=== PATIENT | female | born 1990 ===

== ENCOUNTER 2017-07-31 13:27 | Emergency (ER) | payer SELFPAY ==
[~2017-07-31] VITALS: Ht 162.6 cm; Wt 74.8 kg
[~2017-07-31 13:27] MED LIST: AMOX500; CRUTCH4 USE; FAMO20 PO; IBUP800 PO; ISOT10; NAPR500 PO; SUCR1SU PO; [UNRECOGNIZED DRUG - OTHER]; [UNRECOGNIZED DRUG - REMARK]
[2017-07-31 14:17] LABS: BASOPHILS ABSOLUTE AUTO 0.02 K/mm3 (0.00-0.23); BASOPHILS PERCENT AUTO 0 % (0-2); EOSINOPHILS PERCENT AUTO 1 % (0-6); Hemoglobin 13.3 g/dL (11.5-16.0); IMMATURE GRAN ABSOLUTE AUTO 0.01 K/mm3 (0.00-0.10); IMMATURE GRAN PERCENT AUTO 0 % (0-1); LYMPHOCYTES ABSOLUTE AUTO 2.52 K/mm3 (0.84-5.20); LYMPHOCYTES PERCENT AUTO 36 % (21-46); MONOCYTES ABSOLUTE AUTO 0.39 K/mm3 (0.16-1.47); MONOCYTES PERCENT AUTO 6 % (4-13); Mean Corpuscular HGB 31.9 pg (26.0-34.0); Mean Corpuscular HGB Conc 34.1 g/dL (31.5-36.5); Mean Corpuscular Volume 94 fL (80-100); Mean Platelet Volume 10.7 fL (9.1-12.4); NEUTROPHILS ABSOLUTE AUTO 4.03 K/mm3 (1.96-9.15); NEUTROPHILS PERCENT AUTO 57 % (41-73); Platelet Count 235 K/mm3 (150-400); RDW Coefficient Variation 12.3 % (11.7-14.2); RDW Standard Deviation 41.2 fL (35.1-46.3); Red Blood Cell Count 4.17 M/mm3 (3.80-5.20); White Blood Cell Count 7.07 K/mm3 (4.00-11.30)
[2017-07-31 14:35] LABS: Alanine Aminotransfer (ALT/SGP 25 U/L (12-78); Albumin, Blood 3.8 g/dL (3.4-5.0); Albumin/Globulin Ratio 1.1 (0.8-1.8); Alk Phos 77 U/L (50-136); Anion Gap 6 mmol/L (6-16); Aspartate Aminotrans (AST/SGOT 21 U/L (12-37); Bilirubin, Total 0.3 mg/dL (0.1-1.0); Blood Urea Nitrogen 21 mg/dL (8-24); Bun/Creatinine Ratio 27.3 (12.0-20.0); CO2, Blood 26 mmol/L (21-32); Calcium, Blood 8.4 mg/dL (8.5-10.1); Chloride, Blood 107 mmol/L (98-108); Creatinine, Blood 0.77 mg/dL (0.40-1.00); Globulin, Blood 3.5 g/dL (2.2-4.0); Glomerular Filtration Rate >60 (60-); Glucose, Blood 95 mg/dL (70-99); Sodium, Blood 139 mmol/L (136-145); Total Protein, Blood 7.3 g/dL (6.4-8.2)
[2017-07-31 18:57] LABS: Specimen Source URINE
[2017-07-31] MEDS ORDERED: Vibramycin100 MG PO (20:31)
[2017-07-31] MEDS ORDERED: IBUP600 PO (20:31)
[2017-08-01 15:06] LABS: Source Urine
== END 2017-07-31 21:05 | disposition home or self-care (01) ==
LOC: ER 13:27
PROVIDERS: Emergency Medicine; Physician Assistant
DX: R10.2 Pelvic and perineal pain (principal)
CPT/HCPCS: 36415; 76830; 76856; 80053; 81025; 83690; 84702; 85025; 87491; 87591; 96374; 99284; J0696

== ENCOUNTER → 2018-08-21 | Outpatient (CLI) | payer BC, OTHER ==
[~2018-08-21] MED LIST changes: +IBUP600 PO; +Vibramycin100 MG PO
[2018-08-22 14:09] LABS: HPV 16 Negative (Negative); HPV 18 Negative (Negative); HPV OTHER HR TYPES Positive (Negative)
== END | disposition home or self-care (01) ==
LOC: LAB SHORT 12:14 → LAB 12:14
PROVIDERS: Nurse Practitioner Women's Health
DX: Z12.4 Encounter for screening for malignant neoplasm of cervix (principal); Z91.89 Other specified personal risk factors, not elsewhere classified
CPT/HCPCS: 87624; 87625; G0123

== ENCOUNTER 2018-10-25 00:56 | Day surgery (SDC) | payer BC, OTHER ==
[2018-10-25] MEDS ORDERED: Verotin-Gr Cap1 EACH PO (15:18)
[2018-10-27] MEDS ORDERED: ONDA4ODT MM (08:44)
== END 2018-10-25 16:20 | disposition home or self-care (01) ==
LOC: ATC 00:56
DX: O21.9 Vomiting of pregnancy, unspecified (principal); Z3A.09 9 weeks gestation of pregnancy
CPT/HCPCS: 96365; 96375; J2405; J3475; J7042

== ENCOUNTER 2018-10-29 00:12 | Day surgery (SDC) | payer BC, OTHER ==
[~2018-10-29 00:12] MED LIST changes: +ONDA4ODT MM; +Verotin-Gr Cap1 EACH PO
== END 2018-10-29 16:16 | disposition home or self-care (01) ==
LOC: ATC 00:12
DX: O21.9 Vomiting of pregnancy, unspecified (principal)
CPT/HCPCS: J2405; J3411; J3475; J7042

== ENCOUNTER 2018-10-31 00:10 | Day surgery (SDC) | payer BC, OTHER | END 2018-10-31 11:35 | disposition home or self-care (01) | LOC: ATC 00:10 | DX: O21.2 Late vomiting of pregnancy (principal); Z3A.22 22 weeks gestation of pregnancy | CPT/HCPCS: 96361; 96374; J2405; J3475; J7042; J7120 ==

== ENCOUNTER 2018-11-07 00:29 | Day surgery (SDC) | payer BC, OTHER | END 2018-11-07 11:38 | disposition home or self-care (01) | LOC: ATC 00:29 | DX: O21.2 Late vomiting of pregnancy (principal); Z3A.22 22 weeks gestation of pregnancy | CPT/HCPCS: 96361; 96374; J2405; J7120 ==

== ENCOUNTER 2018-11-14 00:10 | Day surgery (SDC) | payer BC, OTHER ==
[~2018-11-14 00:10] MED LIST changes: +LABE100 PO
== END 2018-11-14 11:00 | disposition home or self-care (01) ==
LOC: ATC 00:10
DX: O21.9 Vomiting of pregnancy, unspecified (principal)
CPT/HCPCS: 96361; 96372; J2405; J3240; J7120

== ENCOUNTER → 2019-03-13 | Outpatient (CLI) | payer BC, OTHER ==
[~2019-03-13] MED LIST changes: +ACET325 PO; +IRON150C PO
== END | disposition home or self-care (01) ==
LOC: LAB SHORT 17:38 → LAB 17:38
DX: R30.0 Dysuria (principal)
CPT/HCPCS: 87086

== ENCOUNTER → 2019-03-28 | Outpatient (CLI) | payer OTHER, BC | LOC: LAB SHORT 15:59 → LAB 15:59 | DX: Z34.83 Encounter for supervision of other normal pregnancy, third trimester (principal); Z3A.32 32 weeks gestation of pregnancy | CPT/HCPCS: 82043; 87086 ==

== ENCOUNTER → 2019-04-11 | Outpatient (CLI) | payer BC, OTHER ==
[2019-04-12 22:06] LABS: CHLAMYDIA TRACHOMATIS, NAA Negative (Negative); NEISSERIA GONORRHOEAE, NAA Negative (Negative)
== END ==
LOC: LAB 12:38 → LAB SHORT 12:38
PROVIDERS: Obstetrics & Gynecology
DX: Z34.83 Encounter for supervision of other normal pregnancy, third trimester (principal); Z3A.36 36 weeks gestation of pregnancy
CPT/HCPCS: 87491; 87591

== ENCOUNTER 2019-04-25 06:05 | Inpatient (IN) | payer OTHER ==
[~2019-04-25] VITALS: Ht 162.6 cm; Wt 101.6 kg
[~2019-04-25 06:05] MED LIST changes: -ACET325 PO; -IRON150C PO
[2019-04-25 07:05] LABS: BASOPHILS ABSOLUTE AUTO 0.03 K/mm3 (0.00-0.23); BASOPHILS PERCENT AUTO 0 % (0-2); EOSINOPHILS ABSOLUTE AUTO 0.06 K/mm3 (0.00-0.68); EOSINOPHILS PERCENT AUTO 1 % (0-6); Hematocrit 36.7 % (33.0-51.0); Hemoglobin 12.5 g/dL (11.5-16.0); IMMATURE GRAN ABSOLUTE AUTO 0.04 K/mm3 (0.00-0.10); IMMATURE GRAN PERCENT AUTO 1 % (0-1); LYMPHOCYTES ABSOLUTE AUTO 1.73 K/mm3 (0.84-5.20); LYMPHOCYTES PERCENT AUTO 22 % (21-46); MONOCYTES ABSOLUTE AUTO 0.36 K/mm3 (0.16-1.47); MONOCYTES PERCENT AUTO 5 % (4-13); Mean Corpuscular HGB 31.5 pg (26.0-34.0); Mean Corpuscular HGB Conc 34.1 g/dL (31.5-36.5); Mean Corpuscular Volume 92 fL (80-100); Mean Platelet Volume 11.4 fL (9.1-12.4); NEUTROPHILS ABSOLUTE AUTO 5.64 K/mm3 (1.96-9.15); NEUTROPHILS PERCENT AUTO 72 % (41-73); Platelet Count 204 K/mm3 (150-400); RDW Standard Deviation 41.1 fL (35.1-46.3); Red Blood Cell Count 3.97 M/mm3 (3.80-5.20); White Blood Cell Count 7.86 K/mm3 (4.00-11.30)
[2019-04-25] MEDS ORDERED: LABE100 PO (07:26)
[2019-04-25] MEDS ORDERED: IRON150C PO (07:27)
--- NOTE | 2019-04-25 23:20 | NUR ---
PT COMPLAINING ABOUT CONSISTANT NECK PAIN. PAIN INCREASED FROM 5/10 TO 10/10. PT STATES THAT THE PAIN IS AT ITS WORST WHEN SITTING UP RIGHT. RN LAID PT FLAT IN BED AND PAIN WAS REDUCED TO 0/10. NOTIFIED KAVITA. NEW ORDER TO GIVE 2 TABS OF FIORECET AND GIVE A BOLUS OF LR. IF NO IMPROVEMENT CALL ANESTHESIA.
[2019-04-26 05:36] LABS: BASOPHILS ABSOLUTE AUTO 0.03 K/mm3 (0.00-0.23); BASOPHILS PERCENT AUTO 0 % (0-2); EOSINOPHILS PERCENT AUTO 1 % (0-6); Hematocrit 32.2 % (33.0-51.0); IMMATURE GRAN ABSOLUTE AUTO 0.04 K/mm3 (0.00-0.10); IMMATURE GRAN PERCENT AUTO 0 % (0-1); LYMPHOCYTES ABSOLUTE AUTO 2.28 K/mm3 (0.84-5.20); LYMPHOCYTES PERCENT AUTO 23 % (21-46); MONOCYTES ABSOLUTE AUTO 0.55 K/mm3 (0.16-1.47); MONOCYTES PERCENT AUTO 6 % (4-13); Mean Corpuscular HGB 31.3 pg (26.0-34.0); Mean Corpuscular HGB Conc 34.2 g/dL (31.5-36.5); Mean Corpuscular Volume 92 fL (80-100); Mean Platelet Volume 11.4 fL (9.1-12.4); NEUTROPHILS ABSOLUTE AUTO 7.05 K/mm3 (1.96-9.15); NEUTROPHILS PERCENT AUTO 70 % (41-73); Platelet Count 168 K/mm3 (150-400); RDW Coefficient Variation 12.1 % (11.7-14.2); RDW Standard Deviation 40.2 fL (35.1-46.3); Red Blood Cell Count 3.52 M/mm3 (3.80-5.20); White Blood Cell Count 10.05 K/mm3 (4.00-11.30)
[2019-04-26] MEDS ORDERED: ACET325 PO (12:47)
[2019-04-26] MEDS ORDERED: IBUP800 PO (12:47)
== END 2019-04-26 17:00 | disposition home or self-care (01) | DRG 807 ==
LOC: BC 06:05
PROVIDERS: ADMIT Obstetrics & Gynecology
PROC: 10E0XZZ Delivery of Products of Conception, External Approach (ICD-10-PCS; principal; 2019-04-25)
PROC: 10907ZC Drainage of Amniotic Fluid, Therapeutic from Products of Conception, Via Natural or Artificial Opening (ICD-10-PCS; 2019-04-25)
PROC: 3E033VJ Introduction of Other Hormone into Peripheral Vein, Percutaneous Approach (ICD-10-PCS; 2019-04-25)
DX: O13.4 Gestational [pregnancy-induced] hypertension without significant proteinuria, complicating childbirth (principal); Z37.0 Single live birth; Z3A.39 39 weeks gestation of pregnancy
CPT/HCPCS: 36415; 51702; 62273; 85025; A9270; J1885; J2001; J2590; J3010; J7120

== ENCOUNTER → 2019-05-15 | Outpatient (CLI) | payer OTHER ==
[~2019-05-15] MED LIST changes: +ACET325 PO; +IRON150C PO
== END | disposition home or self-care (01) ==
LOC: PLD 08:17 → LAB SHORT 08:17
DX: D22.5 Melanocytic nevi of trunk (principal)
CPT/HCPCS: 88305

== ENCOUNTER → 2019-07-26 | Outpatient (CLI) | payer OTHER ==
[2019-07-26 11:46] LABS: Albumin, Blood 2.8 g/dL (3.4-5.0); Albumin/Globulin Ratio 0.9 (0.8-1.8); Bilirubin, Total 0.2 mg/dL (0.1-1.0); Bun/Creatinine Ratio 11.6 (12.0-20.0); Calcium, Blood 7.9 mg/dL (8.5-10.1); Creatinine, Blood 1.29 mg/dL (0.40-1.00); Globulin, Blood 3.1 g/dL (2.2-4.0); Potassium, Blood 4.3 mmol/L (3.5-5.5); Total Protein, Blood 5.9 g/dL (6.4-8.2)
== END | disposition home or self-care (01) ==
LOC: LAB SHORT 11:17 → LAB EV 11:17
PROVIDERS: Physician Assistant
DX: N20.0 Calculus of kidney (principal)
CPT/HCPCS: 80053

== ENCOUNTER → 2021-03-26 | Outpatient (CLI) | payer OTHER ==
[2021-03-28 04:10] LABS: CHLAMYDIA TRACHOMATIS, NAA Negative (Negative)
== END | disposition home or self-care (01) ==
LOC: LAB SHORT 10:26 → LAB 10:26
PROVIDERS: Obstetrics & Gynecology
DX: Z34.81 Encounter for supervision of other normal pregnancy, first trimester (principal)
CPT/HCPCS: 87491; 87591

== ENCOUNTER → 2021-10-21 | Outpatient (CLI) | payer OTHER | END | disposition home or self-care (01) | LOC: LAB SHORT 14:36 | DX: Z34.83 Encounter for supervision of other normal pregnancy, third trimester (principal); Z3A.36 36 weeks gestation of pregnancy | CPT/HCPCS: 87081; 87150 ==

== ENCOUNTER 2021-11-19 23:33 | Emergency (ER) | payer OTHER ==
[~2021-11-19] VITALS: Ht 162.6 cm; Wt 81.7 kg
== END 2021-11-20 03:01 | disposition home or self-care (01) ==
LOC: ER 23:33
DX: O99.893 Other specified diseases and conditions complicating puerperium (principal); M79.662 Pain in left lower leg
CPT/HCPCS: 93971; 99283-25